=== PATIENT | male | born 1945 | race Caucasian/White ===

== ENCOUNTER 2017-05-17 17:27 | Inpatient (IN) | payer MEDICARE, OTHER ==
[~2017-05-17] VITALS: Ht 172.7 cm; Wt 95.7 kg
[~2017-05-17 17:27] MED LIST: ADVAIR 250-501 EACH INH; AMBIEN5 MG PO; Aspirin PO; CELEBREX200 MG PO; COLACE50 MG PO; COMBIVENT RESPIM4 GM IH; CORGARD40 M1 PO; CRESTOR10 MG PO; FUROSEMIDE40 MG PO; GLIMEPIRIDE2 MG PO; NITROSTAT0.4 MG SL; NORCO 10-325 T1 EACH; NYSTATIN100000 UN1 PO; POTASSIUM CHLO10 ME1 PO; PROVENTIL 0.083%3 ML; SPIRIVA18 MCG INH; THEOPHYLLINE A200 MG PO; TRAMADOL HCL200 M1 PO; ULTRAM50 MG PO; Z ATROVENT INH; Z.0.ACIPHEX20 MG PO; Z.0.ADVAIR 100-501 E INH; Z.0.ASPIR 8181 MG PO; Z.0.CELEBREX200 MG PO; Z.0.COMBIVENT INH14.; Z.0.LASIX40 MG PO; Z.0.REGLAN5 MG PO; Z.0.XYZAL5 MG PO; Z.0.ZETIA10 MG PO; ZETIA10 MG PO; [UNRECOGNIZED DRUG - CODE] PO; [UNRECOGNIZED DRUG - OTHER] PO; [UNRECOGNIZED DRUG - OTHER] PO
[2017-05-17] MEDS ORDERED: IPRATROPIUM BROMIDE 0.02% 2.5 ML NEB NEB STA (17:49)
[2017-05-17] MEDS ORDERED: SODIUM CHLORIDE 0.9% 1000ML 1,000 ML IV STA (17:49)
[2017-05-17] MEDS ORDERED: AZITHROMYCIN 500MG/NS 250 ML 250 ML IV STA (17:49)
[2017-05-17] MEDS ORDERED: ALBUTEROL SULF 0.083% NEB SOLN 3 ML NEB NEB STA ×2 (17:49→21:40)
[2017-05-17] MEDS ORDERED: CEFTRIAXONE SOD 1 GM VIAL IV SCH (18:00)
--- NOTE | 2017-05-17 19:09 | Diagnostic Imaging Report ---
Examination: Single AP view of the chest. COMPARISON: None. INDICATION: Cough, shortness of breath DISCUSSION: Lines/tubes: None. Lungs: The lungs are well inflated and clear. There is no evidence of pneumonia or pulmonary edema. Pleura: There is no pleural effusion or pneumothorax. Heart and mediastinum: The heart and the mediastinum are unremarkable. Bones and soft tissues: No acute bony abnormalities. IMPRESSION: 1. No acute cardiopulmonary abnormalities. Signed by: Dr. Paul Yousif M.D. on 05/17/2017 7:05 PM
[2017-05-17] MEDS ORDERED: METHYLPREDNISOLONE SOD SUCC 125 MG/2ML VIAL IV ONE (19:15)
[2017-05-17 21:25] LABS: BASOPHILS % 0.5 % (0.0-1.0); EOSINOPHILS # (AUTO) 0.1 (0.0-0.4); EOSINOPHILS % 1.4 % (0.0-6.0); HEMATOCRIT 49.9 % (38.2-49.6); HEMOGLOBIN 16.2 g/dL (14.0-18.0); LYMPHOCYTES # (AUTO) 0.6 (1.0-3.2); LYMPHOCYTES % 10.1 % (18.0-39.1); MEAN CORPUSCULAR HEMOGLOBIN 29.4 pg (28-32); MEAN CORPUSCULAR HGB CONC 32.5 g/dL (31-35); MEAN CORPUSCULAR VOLUME 90.6 fL (81-99); MONOCYTES # (AUTO) 0.9 (0.2-0.8); MONOCYTES % 13.4 % (4.4-11.3); NEUTROPHILS # (AUTO) 4.7 (2.1-6.9); NEUTROPHILS % 74.1 % (38.7-80.0); PLATELET COUNT 143 x10e3/uL (140-360); RED BLOOD COUNT 5.51 x10e6/uL (4.3-5.7); RED CELL DISTRIBUTION WIDTH 13.2 % (11.7-14.4)
[2017-05-17 21:44] LABS: ALANINE AMINOTRANSFERASE 10 IU/L (0-55); ALBUMIN 3.5 g/dL (3.5-5.0); ALBUMIN/GLOBULIN RATIO 0.8 (0.8-2.0); ALKALINE PHOSPHATASE 105 IU/L (40-150); ANION GAP 14.9 mmol/L (8-16); BLOOD UREA NITROGEN 10 mg/dL (7-26); BUN/CREATININE RATIO 10 (6-25); CALCIUM 9.1 mg/dL (8.4-10.2); CARBON DIOXIDE 32 mmol/L (22-29); CHLORIDE 93 mmol/L (98-107); CREATINE KINASE 144 IU/L (30-200); CREATININE, SERUM 1.04 mg/dL (0.72-1.25); EST GLOMERULAR FILTRATION RATE > 60 ML/MIN (60-); GLUCOSE 95 mg/dL (74-118); LIPASE 8 U/L (8-78); POTASSIUM 3.9 mmol/L (3.5-5.1); SODIUM 136 mmol/L (136-145)
[2017-05-17] MEDS ORDERED: IPRATROPIUM BROMIDE 0.02% 2.5 ML NEB NEB ONE (21:45)
[2017-05-17] MEDS ORDERED: SODIUM CHLORIDE 0.9% 1000ML 1,000 ML ONE (21:49)
[2017-05-17 21:50] LABS: B-TYPE NATRIURETIC PEPTIDE2 81.4 pg/mL (0-100)
[2017-05-17 21:51] LABS: TROPONIN I 0.162 ng/mL (0-0.300)
[2017-05-17 21:58] LABS: BILIRUBIN,URINE NEGATIVE (NEGATIVE); CLARITY,URINE CLEAR (CLEAR); COLOR,URINE YELLOW (YELLOW); KETONES,URINE NEGATIVE (NEGATIVE); LEUKOCYTE ESTERASE ,URINE NEGATIVE (NEGATIVE); NITRITE,URINE NEGATIVE (NEGATIVE); PROTEIN,URINE DIPSTICK NEGATIVE (NEGATIVE); URINE UROBILINOGEN 0.2 mg/dL (0.2 - 1)
[2017-05-17 22:00] LABS: INR 0.94
[2017-05-17 22:01] LABS: PARTIAL THROMBOPLASTIN TIME 37.5 seconds (23.8-35.5)
[2017-05-17] MEDS ORDERED: DEXTROSE 50% SYRINGE 50 ML IV PRN (22:15)
[2017-05-17] MEDS ORDERED: SODIUM CHLORIDE FLUSH 10 ML SYR INJ PRN (22:15)
[2017-05-17] MEDS ORDERED: AZITHROMYCIN 500MG/SOD CHL 0.9% 250ML BAG IV SCH (22:15)
[2017-05-17 22:21] LABS: BACTERIA,URINE RARE /HPF; EPITHELIAL CELLS,URINE FEW /LPF; RBC,URINE 0-5 /HPF (0-5); WBC,URINE (MAN) 0-5 /HPF (0-5)
[2017-05-17] MEDS ORDERED: AZITHROMYCIN 500MG/NS 250 ML 250 ML ONE (22:22)
[2017-05-17] MEDS: ALBUTEROL/IPRATROPIUM 3 ML NEB NEB SCH (23:00)
[2017-05-18] MEDS ORDERED: ADVAIR 500/501 EA INH (00:03)
[2017-05-18] MEDS ORDERED: TUDORZA PRESS400 MCG (00:03)
[2017-05-18] MEDS ORDERED: NORCO 10-325 T1 EACH (00:03)
[2017-05-18] MEDS ORDERED: COMBIVENT RESPIM4 GM IH (00:03)
[2017-05-18] MEDS: ALBUTEROL/IPRATROPIUM 3 ML NEB NEB SCH ×7 (00:15→21:30)
[2017-05-18] MEDS: METHYLPREDNISOLONE SOD SUCC 40 MG/ML VIAL IV SCH ×2 (00:38→12:59)
[2017-05-18] MEDS: NICOTINE 21 MG/EA PATCH TOP PRN (00:38)
[2017-05-18] MEDS ORDERED: ACETAMINOPHEN 325 MG TAB PO PRN (02:00)
[2017-05-18 02:36] VITALS: BP 124/76
[2017-05-18 05:40] LABS: BASOPHILS % 0.2 % (0.0-1.0); HEMATOCRIT 46.7 % (38.2-49.6); HEMOGLOBIN 15.4 g/dL (14.0-18.0); LYMPHOCYTES # (AUTO) 0.3 (1.0-3.2); LYMPHOCYTES % 4.4 % (18.0-39.1); MEAN CORPUSCULAR HEMOGLOBIN 29.3 pg (28-32); MEAN CORPUSCULAR VOLUME 88.8 fL (81-99); MONOCYTES # (AUTO) 0.1 (0.2-0.8); MONOCYTES % 1.3 % (4.4-11.3); NEUTROPHILS # (AUTO) 5.6 (2.1-6.9); NEUTROPHILS % 93.6 % (38.7-80.0); PLATELET COUNT 142 x10e3/uL (140-360); RED BLOOD COUNT 5.26 x10e6/uL (4.3-5.7)
[2017-05-18 05:56] LABS: ANION GAP 14.3 mmol/L (8-16); BLOOD UREA NITROGEN 9 mg/dL (7-26); BUN/CREATININE RATIO 11 (6-25); CALCIUM 9.1 mg/dL (8.4-10.2); CARBON DIOXIDE 31 mmol/L (22-29); CHLORIDE 95 mmol/L (98-107); CREATINE KINASE 134 IU/L (30-200); CREATININE, SERUM 0.83 mg/dL (0.72-1.25); EST GLOMERULAR FILTRATION RATE > 60 ML/MIN (60-); GLUCOSE 213 mg/dL (74-118); POTASSIUM 3.3 mmol/L (3.5-5.1); SODIUM 137 mmol/L (136-145)
[2017-05-18 06:03] LABS: TROPONIN I 0.131 ng/mL (0-0.300)
--- NOTE | 2017-05-18 06:33 | Diagnostic Imaging Report ---
EXAM: CHEST SINGLE (PORTABLE), AP 1 view DATE: 05/18/2017 10:09 PM Time stamp on exam: 0503 hours INDICATION: Shortness of breath, headache, COPD exacerbation COMPARISON: AP view of the chest May 17, 2017 FINDINGS: LINES/TUBES: None LUNGS: Increasing bibasilar atelectasis PLEURA: No effusions or pneumothorax. HEART AND MEDIASTINUM: Stable appearance. Normal cardiac size with prominent pulmonary arteries. BONES AND SOFT TISSUES: No acute findings. Ligamentous screws left humeral head. Midline median sternotomy wires. IMPRESSION: Interval increase in bibasilar atelectasis. Signed by: Dr. Kimberlyn López M.D. on 05/18/2017 6:29 AM
[2017-05-18 07:40] LABS: LYMPHOCYTES % (MANUAL) 3 % (19-48); NEUTROPHILS % (MANUAL) 96 % (40-74)
[2017-05-18 07:41] LABS: ANISOCYTOSIS SLIGHT; PLATELET ESTIMATE SLIGHTLY INCREASED; PLATELET MORPHOLOGY COMMENT NORMAL; RBC MORPHOLOGY COMMENT NORMAL
[2017-05-18 09:28] VITALS: BP 143/83
[2017-05-18] MEDS: AZITHROMYCIN 500MG/NS 250 ML 250 ML IV SCH (11:12)
[2017-05-18] MEDS: INSULIN REGULAR, HUMAN 100 UNIT/1 ML 3ML VIAL SQ SCH ×4 (11:12→21:30)
[2017-05-18 12:27] VITALS: BP 128/70
[2017-05-18 16:44] LABS: CREATINE KINASE MB 3.4 ng/mL (0.00-5.00)
[2017-05-18 16:56] LABS: TROPONIN I 1.05 ng/mL (0-0.300)
[2017-05-18] MEDS ORDERED: DEXTROSE 50% SYRINGE 50 ML IV PRN (18:00)
[2017-05-18] MEDS ORDERED: POTASSIUM CHLORIDE 20 MEQ TAB CR PO PRN (18:00)
[2017-05-18] MEDS ORDERED: NITROGLYCERIN 0.4 MG SUBL SL PRN (18:00)
[2017-05-18] MEDS ORDERED: IPRATROPIUM BROMIDE 0.03% NASAL SPRAY 30ML PRN (18:00)
[2017-05-18] MEDS: SALMETEROL/FLUTICASONE 250/50 INH SCH (21:00)
[2017-05-18] MEDS ORDERED: METHYLPREDNISOLONE SOD SUCC 40 MG/ML VIAL IV SCH (21:00)
[2017-05-18 21:27] VITALS: BP 161/88
[2017-05-18] MEDS: INSULIN LISPRO 100 UNIT/1 ML 3ML VIAL SQ SCH (21:30)
[2017-05-18] MEDS: HEPARIN SOD (PORCINE) 5,000 UNIT/ML VIAL SC SCH (22:00)
[2017-05-18] MEDS: SIMVASTATIN 20 MG TAB PO SCH (22:00)
[2017-05-19] VITALS (7 sets, daily range): BP systolic 135–151; BP diastolic 67–85
[2017-05-19 01:35] LABS: CREATINE KINASE MB 3.5 ng/mL (0.00-5.00); TROPONIN I 0.112 ng/mL (0-0.300)
--- NOTE | 2017-05-19 03:06 | Consultation ---
DATE OF CONSULTATION: May 18, 2017 PULMONARY CONSULTATION A charming but unfortunate 72-year-old gentleman with a history of severe COPD and coronary disease, recently under stress, smoking up to 3 packs a day according to his family. He also complained of daytime hypersomnolence. He falls asleep at the table. He also has had chest pain on exertion, which he attributes to anxiety. 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 He has been sick for several days. He has a history of adverse reaction to Chantix, which caused suicidal ideation. MEDICATIONS: Include Zetia, Advair, Lasix, Amaryl, Vicodin, Atrovent, Corgard, nitroglycerin, potassium, theophylline. He had bypass surgery in 2004. He smokes excessively. Born in [place], [place]. FAMILY HISTORY: Noncontributory. PHYSICAL EXAMINATION GENERAL: This a burly white male in no acute distress. Accompanied by his son and . HEENT: Head is normocephalic and atraumatic. Somewhat plethoric. LUNGS: Diminished breath sounds. Some rales at the bases. HEART: Regular rhythm. ABDOMEN: Nontender. EXTREMITIES: Edematous. Brawny edema. IMPRESSION 1. Acute exacerbation of chronic obstructive pulmonary disease. 2. Basilar pneumonia. 3. Flu exposure. 4. Patient does use nocturnal oxygen. 5. Suggestion of cor pulmonale. 6. Obstructive sleep apnea. 7. Severe chronic obstructive pulmonary disease. Continue to optimize bronchodilators. Monitor blood sugars. Trial of BiPAP. Check his theophylline level. He has been on theophylline for some time. Continue with current management. Thank you for this kind referral. Job#: [id number] [place]
[2017-05-19] MEDS: ALBUTEROL/IPRATROPIUM 3 ML NEB NEB SCH ×6 (03:31→23:15)
[2017-05-19 06:31] LABS: ANION GAP 16.2 mmol/L (8-16); BLOOD UREA NITROGEN 9 mg/dL (7-26); BUN/CREATININE RATIO 11 (6-25); CALCIUM 9.5 mg/dL (8.4-10.2); CARBON DIOXIDE 34 mmol/L (22-29); CHLORIDE 92 mmol/L (98-107); CREATININE, SERUM 0.81 mg/dL (0.72-1.25); EST GLOMERULAR FILTRATION RATE > 60 ML/MIN (60-); GLUCOSE 193 mg/dL (74-118); POTASSIUM 3.2 mmol/L (3.5-5.1); SODIUM 139 mmol/L (136-145)
[2017-05-19] MEDS: SALMETEROL/FLUTICASONE 250/50 INH SCH (07:00)
[2017-05-19] MEDS: AZITHROMYCIN 500MG/NS 250 ML 250 ML IV SCH (08:32)
[2017-05-19] MEDS: GLIMEPIRIDE 2 MG TAB PO SCH (08:32)
[2017-05-19] MEDS: BUPROPION HCL SR 150 MG TAB PO SCH (08:33)
[2017-05-19] MEDS ORDERED: POTASSIUM CHLORIDE 20 MEQ TAB CR PO PRN (08:45)
[2017-05-19] MEDS: METHYLPREDNISOLONE SOD SUCC 40 MG/ML VIAL IV SCH ×2 (08:54→21:30)
[2017-05-19] MEDS: HEPARIN SOD (PORCINE) 5,000 UNIT/ML VIAL SC SCH ×2 (09:00→21:45)
[2017-05-19] MEDS: INSULIN LISPRO 100 UNIT/1 ML 3ML VIAL SQ SCH ×4 (09:37→21:00)
[2017-05-19] MEDS: FUROSEMIDE 40 MG TAB PO SCH (12:37)
[2017-05-19] MEDS: ASPIRIN 81 MG ENTERIC COATED PO SCH (12:37)
--- NOTE | 2017-05-19 12:43 | History and Physical ---
Mr. Simon is a complex, 72-year-old man who presented to the emergency room on the with a complaint of shortness of breath. HISTORY OF PRESENT ILLNESS: The patient is a difficult and recalcitrant historian. 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 PAST MEDICAL HISTORY: Significant for known coronary disease with previous coronary artery bypass graft surgery on June 18, 2004, after previous coronary stents in 1995 and 2003. He had hernia repair in 2009 and colon surgery in 2002. More recently, he has had hip replacement and carpal tunnel repairs. He has longstanding diabetes and obesity. MEDICATIONS: His recent medications when he was last seen in my office 2 years ago included: 1. Klor-Con 10 mEq 4 times a day. 2. Theophylline 200 mg every 12 hours. 3. Glimepiride 2 mg daily. 4. Advair Diskus. 5. Spiriva HandiHaler. 6. Combivent Respimat. 7. Furosemide 40 mg daily. 8. Ipratropium. 9. Nadolol 40 mg 3 times a day. 10. Aciphex 20 mg daily. 11. Celebrex 200 mg as needed. 12. Zetia 10 mg daily. 13. Olivia aspirin 81 mg daily. 14. Crestor 10 mg daily. PERSONAL AND SOCIAL HISTORY: He continues to smoke as above. REVIEW OF SYSTEMS CARDIAC: He does not tell me that he has had any recent chest pain, palpitations or edema. GASTROINTESTINAL: Negative. MUSCULOSKELETAL: Negative. ENDOCRINE: He reports that he only occasionally checks fingerstick blood sugar. PHYSICAL EXAMINATION GENERAL: Exam at this time shows an obese white man who is sitting up straight in a chair and slightly uncomfortable with shortness of breath. VITAL SIGNS: Blood pressure is 140/60. HEENT: Unremarkable. NECK: Thick. THORAX: Healed midline sternotomy. CARDIOVASCULAR: Heart sounds S1 and S2 are equal. There is diffuse bilateral wheezing. ABDOMEN: Protuberant. EXTREMITIES: Trace bilateral edema. Chest x-ray on presentation showed no acute cardiopulmonary abnormalities. However, repeat chest x-ray shows bilateral bibasilar atelectasis. LABORATORY: Studies show hemoglobin 16.2, white count 6.3, platelets 143,000. Presenting chemistries showed sodium 136, potassium 3.9, BUN 10, creatinine 1.0. CK and CK-MB are normal. Troponin I is normal at 0.162. Serum bicarb is elevated at 32. Influenza A and B are negative. ASSESSMENT 1. Exacerbation of severe chronic obstructive pulmonary disease. 2. Coronary disease, clinically stable with no electrocardiographic changes and no chest pain. 3. Type-2, adult-onset diabetes. 4. B-type natriuretic peptide is normal at this time while using his home Lasix. PLAN: Bronchodilators. Will ask for pulmonary consultation. Recommend smoking sensation and check echocardiogram. Further management based on clinical course. Job#: [id number] cc:MD RONY ALEXANDRE M.D.
[2017-05-19 16:42] LABS: ABG PCO2 64 mmHg (41-51)
[2017-05-19 16:43] LABS: ABG HCO3 39 mmol/L (23-28); ABG PO2 122 mmHg (80-105)
[2017-05-19] MEDS: NICOTINE 21 MG/EA PATCH TOP PRN (17:42)
[2017-05-19] MEDS: SIMVASTATIN 20 MG TAB PO SCH (21:30)
[2017-05-19] MEDS: BUSPIRONE HCL 5 MG TAB PO PRN (22:02)
[2017-05-20 00:32] VITALS: BP 137/80
[2017-05-20] MEDS: ALBUTEROL/IPRATROPIUM 3 ML NEB NEB SCH ×6 (02:35→23:02)
[2017-05-20 04:00] VITALS: BP 126/74
[2017-05-20 08:00] VITALS: BP 131/75
[2017-05-20] MEDS: INSULIN LISPRO 100 UNIT/1 ML 3ML VIAL SQ SCH ×4 (09:45→21:00)
[2017-05-20] MEDS: BUPROPION HCL SR 150 MG TAB PO SCH (09:55)
[2017-05-20] MEDS: THEOPHYLLINE 200 MG TABCR PO SCH ×2 (09:55→17:07)
[2017-05-20] MEDS: HEPARIN SOD (PORCINE) 5,000 UNIT/ML VIAL SC SCH ×2 (09:55→21:07)
[2017-05-20] MEDS: FUROSEMIDE 40 MG TAB PO SCH (09:55)
[2017-05-20] MEDS: BUSPIRONE HCL 5 MG TAB PO PRN ×2 (10:00→17:07)
[2017-05-20] MEDS: GLIMEPIRIDE 2 MG TAB PO SCH (10:00)
[2017-05-20] MEDS: AZITHROMYCIN 500MG/NS 250 ML 250 ML IV SCH (10:25)
[2017-05-20] MEDS: ASPIRIN 81 MG ENTERIC COATED PO SCH (10:25)
[2017-05-20] MEDS: METHYLPREDNISOLONE SOD SUCC 40 MG/ML VIAL IV SCH ×2 (10:36→21:06)
[2017-05-20 12:00] VITALS: BP 139/67
[2017-05-20 16:00] VITALS: BP 144/73
[2017-05-20 20:00] VITALS: BP 138/88
[2017-05-20] MEDS: SIMVASTATIN 20 MG TAB PO SCH (21:06)
[2017-05-21] VITALS: BP 139/76
[2017-05-21] MEDS: ALBUTEROL/IPRATROPIUM 3 ML NEB NEB SCH ×5 (03:05→20:00)
[2017-05-21 04:00] VITALS: BP 163/74
[2017-05-21 06:43] LABS: EOSINOPHILS % 0.2 % (0.0-6.0); HEMATOCRIT 53.2 % (38.2-49.6); HEMOGLOBIN 17.3 g/dL (14.0-18.0); LYMPHOCYTES # (AUTO) 0.6 (1.0-3.2); LYMPHOCYTES % 10.3 % (18.0-39.1); MEAN CORPUSCULAR HEMOGLOBIN 29.2 pg (28-32); MEAN CORPUSCULAR HGB CONC 32.5 g/dL (31-35); MEAN CORPUSCULAR VOLUME 89.9 fL (81-99); MONOCYTES # (AUTO) 0.6 (0.2-0.8); MONOCYTES % 10.5 % (4.4-11.3); NEUTROPHILS # (AUTO) 4.4 (2.1-6.9); NEUTROPHILS % 78.8 % (38.7-80.0); PLATELET COUNT 177 x10e3/uL (140-360); RED BLOOD COUNT 5.92 x10e6/uL (4.3-5.7); RED CELL DISTRIBUTION WIDTH 12.6 % (11.7-14.4)
[2017-05-21 07:09] LABS: ANION GAP 14.4 mmol/L (8-16); BLOOD UREA NITROGEN 16 mg/dL (7-26); BUN/CREATININE RATIO 21 (6-25); CALCIUM 9.4 mg/dL (8.4-10.2); CARBON DIOXIDE 36 mmol/L (22-29); CHLORIDE 91 mmol/L (98-107); CHOL/HDL RATIO 7.1 (3.9-4.7); CHOLESTEROL 207 MD/DL (0-199); CREATININE, SERUM 0.77 mg/dL (0.72-1.25); EST GLOMERULAR FILTRATION RATE > 60 ML/MIN (60-); GLUCOSE 150 mg/dL (74-118); HDL CHOLESTEROL 29 MG/DL (40-60); LDL CHOLESTEROL 140 MG/DL (60-130); POTASSIUM 3.4 mmol/L (3.5-5.1); SODIUM 138 mmol/L (136-145); TRIGLYCERIDES 192 MG/DL (0-149)
[2017-05-21] MEDS: INSULIN LISPRO 100 UNIT/1 ML 3ML VIAL SQ SCH ×4 (07:30→21:00)
[2017-05-21 08:00] VITALS: BP_SYST 125; BP_SYST 150; BP_DIAS 63; BP_DIAS 80
[2017-05-21] MEDS: METHYLPREDNISOLONE SOD SUCC 40 MG/ML VIAL IV SCH ×2 (09:14→21:23)
[2017-05-21] MEDS: AZITHROMYCIN 500MG/NS 250 ML 250 ML IV SCH (09:14)
[2017-05-21] MEDS: THEOPHYLLINE 200 MG TABCR PO SCH ×2 (09:14→17:57)
[2017-05-21] MEDS: GLIMEPIRIDE 2 MG TAB PO SCH (09:14)
[2017-05-21] MEDS: ASPIRIN 81 MG ENTERIC COATED PO SCH (09:14)
[2017-05-21] MEDS: HEPARIN SOD (PORCINE) 5,000 UNIT/ML VIAL SC SCH ×2 (09:14→21:23)
[2017-05-21] MEDS: BUPROPION HCL SR 150 MG TAB PO SCH (09:14)
[2017-05-21] MEDS: FUROSEMIDE 40 MG TAB PO SCH (09:14)
[2017-05-21] MEDS ORDERED: POTASSIUM CHLORIDE 20 MEQ TAB CR PO ONE (11:00)
[2017-05-21 12:00] VITALS: BP 150/63
[2017-05-21] MEDS ORDERED: PREDNISONE20 MG PO (12:10)
[2017-05-21] MEDS ORDERED: AZITHROMYCIN250 MG PO (12:10)
[2017-05-21 16:00] VITALS: BP 147/91
[2017-05-21] MEDS: PREDNISONE 10 MG TAB PO SCH (17:57)
[2017-05-21 20:00] VITALS: BP 156/74
[2017-05-21] MEDS: SIMVASTATIN 20 MG TAB PO SCH (21:23)
[2017-05-21] MEDS: NICOTINE 21 MG/EA PATCH TOP PRN (21:24)
[2017-05-22] VITALS: BP 137/85
[2017-05-22] MEDS: ALBUTEROL/IPRATROPIUM 3 ML NEB NEB SCH ×3 (00:15→10:30)
[2017-05-22 04:00] VITALS: BP 158/95
[2017-05-22 07:27] LABS: ANION GAP 14.6 mmol/L (8-16); BLOOD UREA NITROGEN 17 mg/dL (7-26); BUN/CREATININE RATIO 22 (6-25); CALCIUM 9.3 mg/dL (8.4-10.2); CARBON DIOXIDE 35 mmol/L (22-29); CHLORIDE 91 mmol/L (98-107); CREATININE, SERUM 0.79 mg/dL (0.72-1.25); EST GLOMERULAR FILTRATION RATE > 60 ML/MIN (60-); GLUCOSE 185 mg/dL (74-118); POTASSIUM 3.6 mmol/L (3.5-5.1); SODIUM 137 mmol/L (136-145)
[2017-05-22] MEDS: INSULIN LISPRO 100 UNIT/1 ML 3ML VIAL SQ SCH ×2 (07:55→11:30)
[2017-05-22 08:00] VITALS: BP 128/97
[2017-05-22] MEDS: GLIMEPIRIDE 2 MG TAB PO SCH (08:33)
[2017-05-22] MEDS: METHYLPREDNISOLONE SOD SUCC 40 MG/ML VIAL IV SCH (08:33)
[2017-05-22] MEDS: ASPIRIN 81 MG ENTERIC COATED PO SCH (08:34)
[2017-05-22] MEDS: AZITHROMYCIN 500MG/NS 250 ML 250 ML IV SCH (08:34)
[2017-05-22] MEDS: PREDNISONE 10 MG TAB PO SCH (08:34)
[2017-05-22] MEDS: HEPARIN SOD (PORCINE) 5,000 UNIT/ML VIAL SC SCH (08:34)
[2017-05-22] MEDS: BUPROPION HCL SR 150 MG TAB PO SCH (08:34)
[2017-05-22] MEDS: THEOPHYLLINE 200 MG TABCR PO SCH (08:34)
[2017-05-22] MEDS: FUROSEMIDE 40 MG TAB PO SCH (08:34)
[2017-05-22 12:00] VITALS: BP 154/94
== END 2017-05-22 14:22 | disposition home or self-care (01) | DRG 190 ==
LOC: ER 17:27 → ERHOLD 22:21 → MED/SURG2 05-18 19:50
PROVIDERS: ADMIT Internal Medicine Cardiovascular Disease; ATTEND Internal Medicine Cardiovascular Disease
DX: J44.0 Chronic obstructive pulmonary disease with (acute) lower respiratory infection (principal); J18.9 Pneumonia, unspecified organism; J96.21 Acute and chronic respiratory failure with hypoxia; I27.81 Cor pulmonale (chronic); E11.9 Type 2 diabetes mellitus without complications; D63.8 Anemia in other chronic diseases classified elsewhere; N18.3 Chronic kidney disease, stage 3 (moderate); Z99.81 Dependence on supplemental oxygen; I12.9 Hypertensive chronic kidney disease with stage 1 through stage 4 chronic kidney disease, or unspecified chronic kidney disease; J44.1 Chronic obstructive pulmonary disease with (acute) exacerbation; Z20.818 Contact with and (suspected) exposure to other bacterial communicable diseases; G47.33 Obstructive sleep apnea (adult) (pediatric); I25.10 Atherosclerotic heart disease of native coronary artery without angina pectoris; Z95.1 Presence of aortocoronary bypass graft; Z95.5 Presence of coronary angioplasty implant and graft; E66.9 Obesity, unspecified; Z68.32 Body mass index [BMI] 32.0-32.9, adult; Z66 Do not resuscitate; G47.10 Hypersomnia, unspecified
CPT/HCPCS: 36415; 36600; 71010; 80048; 80053; 80061; 80198; 81001; 82550; 82553; 82805; 82948; 83605; 83690; 83880; 84484; 85025; 85610; 85730; 87040; 87086; 87400; 93005; 93306; 94660; 99284; J0456; J1644; J2920; J2930; J7030